=== PATIENT | female | born 1955 | race Caucasian/White ===

== ENCOUNTER 2016-04-28 15:08 | Inpatient (IN) | payer BC, OTHER ==
--- NOTE | 2016-09-26 09:24 | HP ---
DATE OF CLINIC: 09/17/2016 SRI YADAV : 1955 PLANNED PROCEDURE: Left Total Hip Arthroplasty DATE OF PROCEDURE: September 29, 2016 SURGEON: Krishan Olivia MD PCP: Dr. Lizandro Red HISTORY OF PRESENT ILLNESS Sri Yadav is a 61 year old female. * Medication list reviewed with patient allergy list reviewed with patient. Mrs. Yadav is in today pre-operatively for her upcoming left total hip arthroplasty with Dr. Olivia on 09/29/16. Patient presents in good spirits and is ready to proceed. She denies recent illness, change in health, or prior surgical complications. Her recent consult with Dr. Olivia follows: Patient is a 61-year-old female here for a 2nd opinion evaluation with respect to her left hip. She has a chronic history of atraumatic hip discomfort primarily in the groin with some radiation into the thigh and laterally towards the knee. She has previously been seen at [facility] by Dr. Taylor and AMANDA. Those notes are available for my review. She was diagnosed with degenerative disease, has had 2 previous intraarticular injections under ultrasound guidance with "really good" relief. Unfortunately, this has just proven to be temporary. On further questioning, she has actually had some discomfort dating back 7-8 years. At first she ignored this, she states she was "heavy". She has lost over 60 pounds since then. At that time she was with [facility], was treated with Meloxicam which helped and that is when she had her first injection, which also helped temporarily. Her symptoms are non-radicular. No problems with the contralateral side. Pain is worse with weight-bearing, although she has some rest discomfort. She is wondering about additional management options. For personal reasons she is interested in transferring her care to this office. Comorbidities including hypertension. CURRENT MEDICATION * Aspirin 81 MG Tablet 1 once a day 0 days, 0 refills * Biotin 5000 MCG Capsule 1 once a day 0 days, 0 refills * CoQ-10 10 MG Capsule 1 once a day 0 days, 0 refills * EQL [place] 3 Fish Oil 1400 MG Capsule 1 once a day 0 days, 0 refills * HM Super Vitamin B12 2500 MCG Tablet Chewable 1 twice a day 0 days, 0 refills * Lutein 20 MG Tablet 1 once a day 0 days, 0 refills * Magnesium 250 MG Tablet 1 once a day 0 days, 0 refills * Meloxicam 15 MG Tablet 1 once a day 0 days, 0 refills * Multi Vitamin Daily Tablet 1 once a day 0 days, 0 refills * Pro-biotic Blend Capsule 1 once a day 0 days, 0 refills * Resveratrol 250 MG Capsule 1 once a day 0 days, 0 refills * Super B-Complex Tablet 1 once a day 0 days, 0 refills * Vitamin C 500 MG Capsule 1 once a day 0 days, 0 refills * Vitamin D3 2000 UNIT Capsule 1 once a day 0 days, 0 refills PAST MEDICAL/SURGICAL HISTORY Reported: Medical: History of Arthritis and Hypertension. Surgical / Procedural: No prior surgery. SOCIAL HISTORY Behavioral: Caffeine use and non-smoker never smoked. Smoking status: Never smoker. Alcohol: Alcohol 8 drinks a week and alcohol use. Work: Occupation Office. ALLERGIES * Penicillin * Sulfur REVIEW OF SYSTEMS Systemic: No fever and no recent weight change. Head: No head symptoms. Cardiovascular: Cardiovascular symptoms HTN. Pulmonary: No pulmonary symptoms. Gastrointestinal: No gastrointestinal symptoms. Psychological: No psychological symptoms. Skin: No skin lesions and no rash. PHYSICAL FINDINGS * Vitals taken 09/17/2016 02:31 pm BP-Sitting L 168/88 mmHg 100 - 120/56 - 80 BP Cuff Size Regular Pulse Rate-Sitting 72 bpm 50 - 100 Temp-Oral 97.5 F 96 - 101 Height 65 in 59 - 68 Weight 185 lbs 96 - 178 Body Mass Index 30.8 kg/m2 Body Surface Area 1.91 m2 Pain Level 2 Ears, Nose, Throat: * ENT: normal. Lungs: * Clear to auscultation. Cardiovascular: Heart Rate and Rhythm: * Normal. Abdomen: * Normal. Neurological: Motor: * Dominant Hand = Right Hand. Patient is a well-developed, well-nourished female no in acute distress, normal-appearing mood and affect. Evaluation of the left hip girdle shows skin integrity to be well-preserved, no wounds, rashes or lesions. Mild tenderness laterally over the trochanter, NT in the groin, NT in the sciatic notch. ROM at 90 degrees of flexion is 30 degrees ER, 10 degrees IR with pain. Patient can adduct to the midline and extend fully. Thigh is soft and NT. No atrophy or asymmetry compared to the contralateral side. Cursory exam of the knee is normal. Calf is soft and NT. Distal light touch sensation and motor function are grossly intact and symmetric. Pulses are palpable. Sitting SLR is negative. Contralateral hip shows non-irritable motion. TESTS Previous x-rays of the pelvis and right hip from [facility] on 01/24/15 demonstrate severe degenerative changes with complete asymmetric joint space loss medially with periarticular sclerosis and multiple subchondral cystic changes within the femoral head on the left. Contralateral hip is well-preserved. ASSESSMENT * Localized primary osteoarthritis of the left hip Advanced degenerative disease, left hip. THERAPY * Patient not eligible for fall risk assessment. PLAN * Unilateral primary osteoarthritis, left hip Physical Therapy: *Other * OTHER OxyCONTIN 10 MG T12A, 1 po q 12 hours-TO BE USED FOR AFTER SURGERY, 10 days, 0 refills TraMADol HCl 50 MG TABS, 1 po q 6 hours prn pain-TO BE USED FOR AFTER SURGERY, 5 days, 0 refills OxyCODONE HCl 5 MG TABS, 1-2 po q 4 hours for break thru pain if needed-TO BE USED FOR AFTER SURGERY, 5 days, 0 refills * Total hip replacement -Left Discussed with patient in detail the limitations, expectations as well as risks and possible complications of surgery including, but not limited to wound problems or infection, neurovascular injury, continued hip pain or dysfunction, postop instability including the possibility of dislocation and/or postop leg length discrepancy, and the possibility of prosthetic wear or failure over time that may require additional operative or non-operative treatment. Patient also realizes the perioperative risks including risks associated with anesthesia and would like to proceed. A full PAR conference was held, questions and concerns addressed and informed consent was obtained. Patient will be sent from my office for completion of the preoperative workup. Patient will use enteric coated aspirin postoperatively for DVT prophylaxis. [facility] left total hip arthroplasty protocol, posterior hip precautions. CARE TEAM Lizandro Red DO [facility] CC: Lizandro Red DO [facility] Florence S Toole RS/sg
[2016-09-29] MEDS ORDERED: LACTATED RINGERS 1,000 ML ONE (05:29)
[2016-09-29] MEDS ORDERED: POLYMYXIN B SULFATE 500,000 UNITS, BACITRACIN 25,000 UNITS in SODIUM CHLORIDE 3 L IRRIG... IR PRN (05:30)
[2016-09-29] MEDS ORDERED: IV START KIT ONE (05:30)
[2016-09-29] MEDS ORDERED: CLINDAMYCIN 900 MG PREMIX 100 ML IV PRN (05:30)
[2016-09-29] MEDS ORDERED: BUPIVACAINE 0.25% (MDV) 20 ML in SODIUM CHLORIDE 0.9% FLUSH 20 ML IF PRN (05:30)
[2016-09-29] MEDS ORDERED: TRAMADOL HCL 50 MG TABLET PO ONE (05:30)
[2016-09-29] MEDS ORDERED: TRANEXAMIC ACID 1,000 MG in SODIUM CHLORIDE 0.9% 100 ML IV PRN (05:30)
[2016-09-29] MEDS ORDERED: CELECOXIB 200 MG CAPSULE PO ONE (05:30)
[2016-09-29] MEDS ORDERED: CLONIDINE HCL 0.1 MG/24 HR (7 DAY PATCH) TD SCH (05:30)
[2016-09-29] MEDS ORDERED: ONDANSETRON 4 MG/2ML 2 ML VIAL IV ONE (05:30)
[2016-09-29] MEDS ORDERED: BUPIVACAINE 0.25% (MDV) 24 ML, MORPHINE SULFATE 8 MG, EPINEPHRINE 0.3 MG in SODIUM CHLO... IF PRN (05:30)
[2016-09-29] MEDS ORDERED: OXYCODONE HCL 10 MG TAB.SR PO ONE ×2 (05:30→05:31)
[2016-09-29] MEDS ORDERED: GABAPENTIN 600 MG TABLET PO ONE (05:30)
[2016-09-29] MEDS ORDERED: FAMOTIDINE 20 MG TABLET PO ONE (05:30)
[2016-09-29] MEDS ORDERED: TRAMADOL HCL 50 MG TABLET ONE (05:31)
[2016-09-29] MEDS ORDERED: ONDANSETRON 4 MG/2ML 2 ML VIAL ONE (05:31)
[2016-09-29] MEDS ORDERED: FAMOTIDINE 20 MG TABLET ONE (05:31)
[2016-09-29] MEDS ORDERED: CELECOXIB 200 MG CAPSULE ONE (05:32)
[2016-09-29] MEDS ORDERED: GABAPENTIN 600 MG TABLET ONE (05:32)
[2016-09-29] MEDS ORDERED: CLONIDINE HCL 0.1 MG/24 HR (7 DAY PATCH) TD ONE (05:32)
[2016-09-29] MEDS ORDERED: FENTANYL 100 MCG/2 ML VIAL ONE (06:01)
[2016-09-29] MEDS ORDERED: MIDAZOLAM HCL 1 MG/ML 2ML VIAL ONE ×2 (06:02→07:43)
[2016-09-29] MEDS ORDERED: CLINDAMYCIN 900 MG PREMIX 50 ML IV ONE (06:04)
[2016-09-29] MEDS ORDERED: SPINAL PROCEDURAL TRAY 1 EACH ONE (06:14)
[2016-09-29] MEDS ORDERED: PROPOFOL 20 ML IV ONE ×4 (06:19→08:37)
[2016-09-29] MEDS ORDERED: LIDOCAINE 2% (PRES FREE) 5 ML VIAL ONE (06:22)
[2016-09-29] MEDS ORDERED: DEXAMETHASONE SOD PHOS 4 MG/1 ML VIAL ONE (08:15)
[2016-09-29] MEDS ORDERED: EPHEDRINE SULFATE UD SYR 25 MG 25 MG/5 ML SYRINGE IV ONE ×2 (08:26→08:51)
[2016-09-29 10:02] LABS: PH,URINE 6.5 (5.0-8.0); URINE BILIRUBIN NEGATIVE (NEGATIVE); URINE BLOOD TRACE (NEGATIVE); URINE GLUCOSE (UA) NEGATIVE (NEGATIVE); URINE LEUKOCYTE ESTERASE NEGATIVE (NEGATIVE); URINE NITRITE NEGATIVE (NEGATIVE); URINE PROTEIN NEGATIVE (NEGATIVE); URINE UROBILINOGEN NORMAL (0-1 mg/dl)
[2016-09-29 10:03] LABS: URINE APPEARANCE CLEAR; URINE COLOR YELLOW
[2016-09-29 10:14] LABS: URINE EPITHELIAL CELLS RARE /hpf; URINE RBC 0-1 /hpf; URINE WBC NEG /hpf
[2016-09-29 10:15] LABS: URINE BACTERIA RARE; URINE CRYSTALS FEW CA OX /hpf
--- NOTE | 2016-09-29 10:39 | RAD ---
PELVIS HISTORY: Postop. COMPARISONS: 09/17/2016. FINDINGS: An AP view of the pelvis demonstrates interval placement of a total left hip arthroplasty with a noncemented femoral component. No pericomponent fracture is visualized. The osseous pelvis appears to be appropriate. IMPRESSION: 1. Interval placement of a total left hip arthroplasty with no pericomponent fracture visualized.
[2016-09-29 10:51] VITALS: BMI 30.3
--- NOTE | 2016-09-29 10:52 | PCMBPN ---
Brief Post Op Note: Date of Procedure: 09/29/16 Start Time: [] Preoperative Diagnosis: left hip DJD Postoperative Diagnosis: 1. [Same] Procedure: left SIXTO Surgeon: Krishan Olivia MD Assist: Skye (SAQIB) Anesthesia: spinal (Radha) Condition: stable to PAR Complications: none IV Fluids: 2000 ml Urine Output: 75 mLs Estimated Blood Loss: 250 mLs Tourniquet Time: [N/A] Specimens: [N/A] Implants: [place]ilock Drains: none
[2016-09-29] MEDS ORDERED: HYDROMORPHONE HCL 0.5 MG/0.5 ML SYRINGE IV PRN (11:13)
[2016-09-29] MEDS ORDERED: HYDROXYZINE PAMOATE 25 MG CAPSULE PO PRN (11:13)
[2016-09-29] MEDS ORDERED: KETOROLAC TROMETHAMINE 30 MG/ML 1 ML VIAL IV PRN (11:13)
[2016-09-29] MEDS ORDERED: ONDANSETRON 4 MG/2ML 2 ML VIAL IV PRN (11:13)
[2016-09-29] MEDS ORDERED: CALCIUM CARBONATE 500 MG TAB.CHEW PO PRN (11:13)
[2016-09-29] MEDS ORDERED: TEMAZEPAM 15 MG CAPSULE PO PRN (11:13)
[2016-09-29] MEDS ORDERED: PUMP TUBING ONE (11:39)
[2016-09-29] MEDS: D5 1/2NS with 20 mEq KCL 1,000 ML IV SCH ×2 (11:48→20:04)
[2016-09-29] MEDS: CLINDAMYCIN 600 MG PREMIX 600 MG in Premix (D5W) 50 ml 1 EACH IV SCH ×2 (13:59→20:11)
[2016-09-29] MEDS: ACETAMINOPHEN 500 MG TABLET PO SCH ×2 (16:56→22:42)
[2016-09-29] MEDS ORDERED: TRAMADOL HCL 50 MG TABLET PO PRN (17:30)
[2016-09-29] MEDS: ASCORBIC ACID 500 MG TABLET PO SCH (20:12)
[2016-09-29] MEDS: DOCUSATE SODIUM 100 MG CAPSULE PO SCH (20:12)
[2016-09-30] MEDS: D5 1/2NS with 20 mEq KCL 1,000 ML IV SCH (03:45)
[2016-09-30] MEDS: ACETAMINOPHEN 500 MG TABLET PO SCH ×3 (05:08→16:59)
[2016-09-30] MEDS ORDERED: REMOVE PATCH 1 EACH UNIT TD SCH (05:30)
[2016-09-30 05:54] LABS: HEMATOCRIT 33.4 % (37.0-47.0); MEAN CELL VOLUME 95.2 fl (81.0-99.0); MEAN CORPUSCULAR HEMOGLOBIN 31.3 pg (27.0-31.0); MEAN CORPUSCULAR HGB CONC 32.9 g/dl (33.0-37.0); RED CELL DISTRIBUTION WIDTH 12.6 % (11.5-14.5)
[2016-09-30 06:20] LABS: CALCIUM 8.2 mg/dL (8.6-10.3)
[2016-09-30] MEDS: OXYCODONE HCL 5 MG TABLET PO PRN ×2 (07:51→16:59)
[2016-09-30] MEDS: ASCORBIC ACID 500 MG TABLET PO SCH (08:42)
[2016-09-30] MEDS: DOCUSATE SODIUM 100 MG CAPSULE PO SCH (08:42)
--- NOTE | 2016-09-30 08:43 | PDOC43 ---
- Subjective Subjective: Reports Pain Tolerable, Denies Nausea, Denies Vomiting, Denies Fever - Objective Vital Signs Temperature 97.8 F 09/30/16 07:42 Pulse Rate 66 09/30/16 07:42 Respiratory Rate 17 09/30/16 07:42 Blood Pressure 109/72 09/30/16 07:42 O2 Saturation by Pulse Oximetry 96 09/30/16 07:42 Oxygen Delivery Method Room Air Oxygen Flow Rate 0 Laboratory 09/30/16 05:30 09/30/16 05:30 09/30/16 05:30 RBC 3.51 L MCH 31.3 H MCHC 32.9 L Estimated GFR 125 H Calcium 8.2 L Active Medication Orders Category Date Time Status Acetaminophen [Tylenol] Med 09/29/16 17:00 Active 1,000 mg PO Q6H Ascorbic Acid [Vitamin C] Med 09/29/16 21:00 Active 500 mg PO BID Aspirin (Enteric Coated) [Ecotrin] Med 09/30/16 09:00 Active 325 mg PO DAILY Bisacodyl [Dulcolax] Med 10/02/16 10:19 Active 10 mg [place] DAILY PRN Calcium Carbonate [Tums] Med 09/29/16 11:13 Active 1,000 - 2,000 mg PO Q2H PRN D5 1/2NS with 20 mEq KCL [D51/2NS with 20 mEq KCL] 1, Med 09/29/16 11:13 Active 000 ml IV 125 mls/hr Docusate Sodium [Colace] Med 09/29/16 21:00 Active 100 mg PO BID Hydromorphone HCl [Dilaudid] Med 09/29/16 11:13 Active 0.5 mg IV Q1H PRN Hydroxyzine Pamoate [Vistaril] Med 09/29/16 11:13 Active 25 - 50 mg PO Q4H PRN Ketorolac Tromethamine [Toradol] Med 09/29/16 11:13 Active 30 mg IV Q6H PRN Magnesium Hydroxide [Milk of Magnesia] Med 09/30/16 10:19 Active 30 ml PO DAILY PRN Magnesium Oxide Med 09/30/16 09:00 Active 400 mg PO DAILY Meloxicam [Mobic] Med 09/30/16 09:00 Active 15 mg PO DAILY Multivitamins [One-A-Day] Med 09/30/16 09:00 Active 1 tab PO DAILY Ondansetron 4 mg/2ml Vial [Zofran] Med 09/29/16 11:13 Active 4 - 6 mg IV Q6H PRN Oxycodone HCl [Roxicodone] Med 09/29/16 11:13 Active 5 - 10 mg PO Q4H PRN Remove Patch Med 09/30/16 10:19 Once 1 each TD X1 ONE Sodium Chloride 0.9% Flush [Normal Saline 10ml Flush] Med 09/29/16 11:13 Active 10 - 50 ml IV PRN PRN Sodium Chloride 0.9% Flush [Normal Saline 10ml Flush] Med 09/29/16 17:00 Active 10 ml IV Q8HR Temazepam [Restoril] Med 09/29/16 11:13 Active 15 mg PO BEDTIME PRN Tramadol HCl [Ultram] Med 09/29/16 17:30 Active 50 mg PO Q6H PRN Intake and Output 09/28/16 09/29/16 09/30/16 23:59 23:59 23:59 Intake Total 5094 2988 Output Total 2085 1700 Balance 3009 1288 General: Afebrile HEENT: Atraumatic Lungs: Normal Air Movement Cardiovascular: Regular Rate and Rhythm Abdomen: Soft Skin: Normal Color, Warm, Dry, Intact Neurological: Alert, Oriented x 4 Psych/Mental Status: Normal Affect, Normal Mood - Left Lower Extremity Incision: Dressing Clean/Dry/Intact, No Shadow Drainage, No Drainage Motor: Extensor Hallucis Longus: 5/5, Tibialis Anterior: 5/5, Gastrocnemius: 5/5 Gross Sensation to Light Touch: Present: Deep Peroneal Nerve, Superficial Peroneal Nerve, Medial Plantar Nerve, Lateral Plantar Nerve Capillary Refill: < 3 Seconds Motion: gentle supine PROM well tolerated. Difficulty with active HS/SLR - Problems (1) Status post total hip replacement, left Status: AcuteAssessment/Plan: POD#1- doing well 1. Physical Therapy: per protocol, SIXTO precautions 2. Pain Control: excellent per protocol, Will use her scheduled meloxicam as well as tramadol/oxycodone as needed for breakthrough pain 3. DVT Prophylaxis: ECASA/mechanicals/mobilization per risk stratification protocol 4. Disposition: plan D/C home this PM or tomorrow depending on progress with PT/ OT 5. Medical Issues: stable
[2016-09-30] MEDS ORDERED: ASPIRIN (ENTERIC COATED) 325 MG TABLET.EC PO SCH (09:00)
[2016-09-30] MEDS ORDERED: MULTIVITAMINS 1 TAB TABLET PO SCH (09:00)
[2016-09-30] MEDS ORDERED: Magnesium Oxide 400 MG TABLET PO SCH (09:00)
[2016-09-30] MEDS ORDERED: MELOXICAM 15 MG TABLET PO SCH (09:00)
[2016-09-30] MEDS ORDERED: TURMERIC ROOT EXTRACT 500 MG PO SCH (09:00)
[2016-09-30] MEDS ORDERED: MAGNESIUM HYDROXIDE 30 ML UDCUP PO PRN (10:19)
[2016-09-30] MEDS ORDERED: REMOVE PATCH 1 EACH UNIT TD ONE (10:19)
[2016-09-30 16:14] VITALS: BP 121/69
--- NOTE | 2016-10-01 09:21 | OP ---
LAURA YADAV [id number] : 1955 DATE OF SURGERY: September 29, 2016 PREOPERATIVE DIAGNOSIS: Degenerative joint disease left hip POSTOPERATIVE DIAGNOSIS: Same PROCEDURE: Left Total Hip Arthroplasty COMPONENTS: Tri-Lock size 6 standard offset press-fit femoral stem with a +1.5 36mm delta ceramic femoral head, 56mm press-fit acetabular shell with a neutral cross-linked polyethylene liner. SURGEON: Corwin ASSIST: Skye ALEXANDER) ANESTHESIA: Spinal per Radha EBL: 250 cc URINE OUTPUT: 75 cc IVF REPLACEMENT: Per anesthesia, 2 liters crystalloid DRAINS: None COMPLICATIONS: None HISTORY: Briefly, patient is a 61-year-old female with clinical and radiographic evidence most consistent with degenerative joint disease of their left hip. They have failed traditional nonoperative measures and at this point desire elective surgical management. For additional details, refer to previously dictated Preoperative History and Physical Exam. A full PAR conference was held, questions and concerns were addressed, and informed consent was obtained. FINDINGS: Advanced degenerative changes, subchondral cystic changes within the acetabulum and deformity of the femoral head as expected. PROCEDURE: The patient was taken to the operating room and after previously described anesthesia was placed in the lateral decubitus position on the operating room table and held with the peg board positioner. Corie prominences were well padded and an axillary roll was placed. The left hip girdle and lower extremity were then prepped and draped out in the usual sterile fashion. Preoperative antibiotics were given empirically. Intraoperative DVT prophylaxis consisted of bilateral mechanical foot pumps. Personal filtration suits were used as was a closed room environment. An oblique ten centimeter incision was made using the minimally invasive guide posterior and extending slightly proximal to the greater trochanter. We dissected through subcutaneous tissue down to the gluteus fascia. Electrocautery was used at this point and throughout the duration of the case to establish and maintain hemostasis. The gluteus fascia was incised in line with the incision and the muscle fibers split to expose the underlying bursal tissue. Tranexamic acid was infiltrated over 10 minutes prior to incision, 1 gram dose per protocol. A similar 2nd dose was given at initiation of closure. A deep self retaining field retractor was placed. The short external rotators were identified, the piriformis was tagged and reflected with the underlying capsule which was reflected in a U fashion off the femoral neck and tagged as well for later repair. Release of the capsule allowed for dislocation of the hip and the femoral head was brought up into the operative field. A femoral neck cut was made proximal to the lesser trochanter as per our preoperative templating. We then translated the femur anteriorly exposing the acetabulum. The remaining labrum was excised circumferentially. Osteophytes were debrided over the anterior superior acetabulum under direct visualization. We reamed to the true acetabular floor. There was a very little medial osteophyte so we took care not to progress too far medially and then incrementally up to a 55 as per our preoperative plan at which point we noted circumferential bleeding cancellous bone. This was trialed at approximately 45 degrees of abduction and 20 degrees of anteversion with good fit and stability. We then impacted the true acetabular component which was seated completely. An apical hole cover was placed and we impacted the neutral crosslinked polyethylene liner. Attention was then directed back to the femur. The remaining soft tissue was cleared from the piriformis fossa and we use a rongeur and box osteotome to enter the proximal femoral canal followed by the canal seeker and then the broach only system up to a size 6 matching the patient's wales anteversion with good proximal fill and rotational stability. This was trialed with a standard offset +1.5. The hip was then reduced with good stability to 70 degrees of internal rotation in 90 degrees of flexion and full extension with no instability on external rotation. There was good soft tissue balance and approximately equal leg lengths. Satisfied, trial components were removed and we impacted the true femoral stem. The trunnion was then cleaned and dried and the femoral head was impacted. The hip was then reduced with stability as previously discussed. Satisfied, we turned our attention to closure. The wound was copiously irrigated with antibiotic pulsatile lavage. We then advanced the capsule and piriformis to the gluteus medius insertion. The gluteus fascia was closed with a running number two PDO StratoFix suture. 1st periarticular injection was given at this point per protocol into the capsule, synovium, gluteus and external rotators. The subcutaneous tissue was closed with interrupted 2-0 and 3-0 Vicryl and the skin was closed with a running 4-0 Monocryl stitch with Indermil and Steri-Strips. The 2nd periarticular injection was done at this point per protocol into the subcutaneous tissue superiorly and anteriorly to the incision. A sterile hip dressing was then applied, the patient was returned to the supine position, transferred to their hospital bed, and sent to the postoperative recovery room in stable condition. They tolerated the procedure well. Sponge, instrument, and needle count were correct. TIM/mrw CC: Lizandro Red DO [facility]
--- NOTE | 2016-10-02 10:14 | DS ---
LAURA YADAV [id number] : 1955 DATE OF ADMISSION: September 29, 2016 DATE OF DISCHARGE: September 30, 2016 DISCHARGE DIAGNOSES: Left hip osteoarthritis HOSPITAL PROCEDURES: Left Total Hip Arthroplasty SURGEON: Krishan Olivia M.D. BRIEF HISTORY: Patient is a 61-year-old female with clinical and radiographic evidence of advanced DJD of their left hip. For the full history please see the chart note. BRIEF HOSPITAL COURSE: Patient was admitted on 09/29/16. Dr. Krishan Olivia performed a left total hip arthroplasty. Patient was moved to the recovery room in stable condition. They were given 4 doses of antibiotic for empiric coverage. DVT prophylaxis consisted of enteric coated aspirin, 325mg, MELITA hose and AV foot pumps. PT was instituted postop day 0 with left total hip arthroplasty protocol, weightbearing as tolerated. Their incision site remained benign, their vital signs remained stable and they remained neurally and vascularly intact through the duration of the stay. They were discharged home postop day 1 to continue outpatient PT at [facility] with left total hip arthroplasty protocol, weightbearing as tolerated keeping total hip precautions in mind. DISCHARGE INSTRUCTIONS: 1. Keep the wound site clean and dry, change dressing daily or as needed. 2. Continue the use of MELITA hose bilaterally. 3. Ice pack over the wound site prn. 4. Continue total hip precautions. 5. Outpatient PT at [facility] with left total hip arthroplasty protocol, weightbearing as tolerated. MEDICATIONS: 1. Patient is to resume normal preop medications. 2. Anti-coagulation will be with enteric coated aspirin, 325mg, 1 daily for 6 weeks. 3. Pain management will be with Oxycodone, 5mg 1-2 every 4 hours prn for pain, and Tramadol, 50mg every 6 hours prn pain as well as Meloxicam, 15mg, 1 po q day. 4. Patient was also advised on utilization of a multi-vitamin with mineral daily as well as Vitamin C, 500mg, daily for 1 month. 5. Patient encouraged to take an iron supplement in the form of ferrous sulfate, 325mg daily for 4 weeks. 6. Colace, 100mg, b.i.d. until regular bowel movement. FOLLOW-UP: Please return to the clinic as scheduled for your first scheduled postop check. Prior to that point in time please call with any questions or concerns. TR/tim CC: [facility]
[2016-10-02] MEDS ORDERED: BISACODYL 10 MG SUP PR PRN (10:19)
== END 2016-09-30 17:24 | disposition home or self-care (01) | DRG 470 ==
LOC: OR 09-29 05:27 → MS 09-29 11:10
PROVIDERS: ADMIT Orthopaedic Surgery; ATTEND Orthopaedic Surgery
PROC: 0SRB04A Replacement of Left Hip Joint with Ceramic on Polyethylene Synthetic Substitute, Uncemented, Open Approach (ICD-10-PCS; principal; 2016-09-29)
DX: M16.12 Unilateral primary osteoarthritis, left hip (principal); I10 Essential (primary) hypertension; Z79.82 Long term (current) use of aspirin; Z88.2 Allergy status to sulfonamides; Z88.0 Allergy status to penicillin